=== PATIENT | female | born 1995 | race Caucasian/White ===

== ENCOUNTER 2016-11-23 22:24 | Emergency (ER) | payer BC ==
[~2016-11-23] VITALS: Ht 167.6 cm; Wt 85.5 kg
[~2016-11-23 22:24] MED LIST: ONDA-43 PO
[2016-11-23 22:42] VITALS: Ht 167.6 cm; Wt 85.5 kg
--- NOTE | 2016-11-23 23:49 | ERD ---
ER Documentation Chief Complaint Date/Time DATE: 11/23/16 TIME: 23:43 Chief Complaint RASH ON FACE AND CHEST THAT STARTED 1 WK AGO BUT SPREADING HPI This 21-year-old female presents to the emergency department for sudden onset of nonparetic rash. Patient reports rash started on her face and is moved to her chest abdomen and thighs. Patient has no history of prior dermatitis or rashes. Patient denies any food allergies, denies difficulty swallowing, lip swelling, or shortness of breath. Patient states she has tried Benadryl for symptomatic leaf with little relief of symptoms. ROS All systems reviewed and are negative except as per history of present illness. Medications Home Meds Active Scripts Ondansetron Hcl* (Zofran*) 4 Mg Tab, 4 MG PO Q4H Y for NAUSEA AND OR VOMITING for 30 Days, TAB Prov:ARMANDO BROWN PA-C 10/25/14 Reported Medications [None] No Conflict Check 10/10/09 Allergies Allergies: Coded Allergies: No Known Allergies (Verified Allergy, Mild, 05/11/10) PMhx/Soc History of Surgery: No Anesthesia Reaction: No Hx Neurological Disorder: No Hx Respiratory Disorders: No Hx Cardiac Disorders: No Hx Psychiatric Problems: No Hx Miscellaneous Medical Probl: No (NO OTHER MEDICAL PRPOBLEMS) Hx Alcohol Use: No Hx Substance Use: Yes (former marijuana user) Hx Tobacco Use: No Smoking Status: Never smoker Physical Exam Vitals Vital Signs Date Time Temp Pulse Resp B/P Pulse Ox O2 Delivery O2 Flow Rate FiO2 11/23/16 22:42 98.5 60 16 112/60 100 Vitals stable, triage notes reviewed Physical Exam Const: Well-appearing, well-nourished, well-hydrated no acute Head: Atraumatic Eyes: Normal Conjunctiva, PERRLA, EOMI ENT: Normal External Ears, Nose and Mouth mucous membranes soft, no evidence of angioedema. Neck: Full range of motion..~ No meningismus. Resp: Clear to auscultation bilaterally no rales wheezes or rhonchi or stridor Cardio: Abd: Skin: Red scaly paretic rash macules and one plaque noted on right thigh symptoms suggestive of pityriasis Back: Ext: Neur: Awake and alert Psych: Normal Mood and Affect Procedures/MDM This 21-year-old female presents to emergency department for evaluation of rash. I have little suspicion for Calvin Santiago syndrome, anaphylactic shock, chickenpox, shingles, patient has taken Benadryl at home and is not given Benadryl in the emergency department will be discharged with instructions to start eipl-lny-mnbcudi antihistamine second-generation Claritin, betamethasone will be prescribed and to follow-up with primary care physician for rash reevaluation after 7 days. Return to emergency department for shortness of breath difficulty swallowing or or breathing. I feel the patient is stable for discharge at this time. I have discussed results, examination findings, the treatment plan with the patient and family present prior to discharge. Indications for emergent reevaluation, side effects of medication were also discussed. All questions were answered. Patient verbalizes understanding and agrees with plan of care. Departure Diagnosis: Primary Impression: Pityriasis Condition: Good Patient Instructions: Pityriasis Rosea Additional Instructions: Thank you for for coming to [facility] for your care today. Please ask your nurse or provider if you have questions about your care today and do not leave until all your questions have been answered. Please use any medications given as directed and follow-up with your doctor (or the doctor you were referred to) in the next 2-3 days. If you do not have a primary care doctor you may follow up at the [facility] (listed below). You may also use motrin and tylenol as needed for fever and/or pain unless instructed otherwise by your provider or nurse. Indications for more urgent follow-up have been discussed, but you may return to the Emergency Department at ANY time for any worrisome or worsening symptoms. If you have abdominal pain, please know that no test or exam you received is perfect and you should follow up within 8 hours for continued pain. If you had any imaging studies today, such as an X-Ray or CT Scan, these studies will be reviewed later by a radiologist. You will be called if there are important findings that were not identified today, so make sure the contact information you provided at registration is correct. If you received any narcotic pain control medicine today, such as Vicodin, Morphine or Dilaudid, your coordination and judgment may be affected for a number of hours. Please do not drive or operate heavy machinery, and you may want someone to assist you at home. If you were given a prescription for narcotic medication, be aware that it is very addictive- use sparingly and only if necessary. KANA ROBINS Nov 23, 2016 23:49
[2016-11-23] MEDS ORDERED: BETA50CR5 TP (23:51)
[2016-11-23] MEDS ORDERED: LORA10CA PO (23:51)
== END 2016-11-24 00:10 | disposition home or self-care (01) ==
LOC: FTE 22:24
DX: L30.5 Pityriasis alba (principal)
CPT/HCPCS: 99283

== ENCOUNTER 2017-01-25 00:58 | Emergency (ER) | payer BC ==
[~2017-01-25] VITALS: Ht 167.6 cm; Wt 88.0 kg
[~2017-01-25 00:58] MED LIST changes: +BETA50CR5 TP; +LORA10CA PO
[2017-01-25 01:02] VITALS: Ht 167.6 cm; Wt 88.0 kg
[2017-01-25] MEDS ORDERED: FLUT9.9S NASAL (04:47)
[2017-01-25] MEDS ORDERED: CETI10CA PO (04:47)
[2017-01-25] MEDS ORDERED: IBUP-1542 PO (04:47)
[2017-01-25] MEDS ORDERED: ALBU8.5H3 INH (04:47)
[2017-01-25] MEDS ORDERED: GUAI120S26 PO (04:47)
--- NOTE | 2017-01-25 05:07 | ERD ---
ER Documentation Chief Complaint Date/Time DATE: 01/25/17 TIME: 04:58 Chief Complaint runny nose, back pain, cough HPI 21-year-old female presents here to emergency department for complaints of cough runny nose nasal congestion that started 3 days ago. Patient has been having upper back pain from coughing a lot. Patient has been having dry cough, has been having on and off wheezing at times, smokes marijuana regularly. Patient does not have any fever or chills. ROS All systems reviewed and are negative except as per history of present illness. Medications Home Meds Active Scripts Fluticasone Propionate (Flonase Allergy Relief) 9.9 Ml [place].susp, 1 SPRAY NASAL BID, #1 BOTTLE TO EACH NOSTRIL Prov:ERIC ROSE NP 01/25/17 Ibuprofen* (Motrin*) 600 Mg Tab, 600 MG PO Q6H Y for PAIN AND OR ELEVATED TEMP, #30 TAB Prov:ERIC ROSE NP 01/25/17 Cetirizine Hcl* (Zyrtec*) 10 Mg Capsule, 10 MG PO DAILY, #30 TAB.CHEW Prov:ERIC ROSE NP 01/25/17 Albuterol Sulfate* (Proair HFA*) 8.5 Gm Hfa.aer.ad, 2 PUFF INH Q4H Y for WHEEZING AND SOB, #1 INHALER Prov:ERIC ROSE NP 01/25/17 Kchhvmoqorw-S-Xifrnilowi Hb* (Guaifenesin* DM Syrup) 120 Ml Syrup, 10 ML PO Q4H Y for COUGH, #120 ML Prov:ERIC ROSE NP 01/25/17 Loratadine* (Claritin*) 10 Mg Capsule, 10 MG PO DAILY for 30 Days, #30 CAP Prov:SHIMON,KANA 11/23/16 Betamet Diprop/Prop Gly (Betamethasone Dp 0.05% Crm) 50 Gm Cream.gm., 50 GM TP BID for 14 Days Prov:SHIMON,KANA 11/23/16 Ondansetron Hcl* (Zofran*) 4 Mg Tab, 4 MG PO Q4H Y for NAUSEA AND OR VOMITING for 30 Days, TAB Prov:ARMANDO BROWN PA-C 10/25/14 Reported Medications [None] No Conflict Check 10/10/09 Allergies Allergies: Coded Allergies: No Known Allergies (Verified Allergy, Mild, 05/11/10) PMhx/Soc Medical and Surgical Hx: pt denies Medical Hx, pt denies Surgical Hx History of Surgery: No Anesthesia Reaction: No Hx Neurological Disorder: No Hx Respiratory Disorders: No Hx Cardiac Disorders: No Hx Psychiatric Problems: No Hx Miscellaneous Medical Probl: No (NO OTHER MEDICAL PROBLEMS) Hx Alcohol Use: No Hx Substance Use: Yes (former marijuana user) Hx Tobacco Use: No Smoking Status: Former smoker FmHx Family History: No coronary disease, No diabetes, No other Physical Exam Vitals Vital Signs Date Time Temp Pulse Resp B/P Pulse Ox O2 Delivery O2 Flow Rate FiO2 01/25/17 01:02 98.8 78 20 129/60 98 Physical Exam GENERAL: The patient is well developed and appropriate for usual state of health, in no apparent distress. CHEST: Clear to auscultation bilaterally. There are no rales, wheezes or rhonchi. HEART: Regular rate and rhythm. No murmurs, clicks, rubs or gallops. No S3 or S4. ABDOMEN: Soft, nontender and nondistended. Good bowel sounds. No rebound or guarding. No gross peritonitis. No gross organomegaly or masses. No Castro sign or McBurney point tenderness. BACK: No midline or flank tenderness. EXTREMITIES: Equal pulses bilaterally. There is no peripheral clubbing, cyanosis or edema. No focal swelling or erythema. Full range of motion. Grossly neurovascularly intact. NEURO: Alert and oriented. Cranial nerves 2-12 intact. Motor strength in all 4 extremities with 5/5 strength. Sensation grossly intact. Normal speech and gait. SKIN: There is no apparent rash or petechia. The skin is warm and dry. HEMATOLOGIC AND LYMPHATIC: There is no evidence of excessive bruising or lymphedema. No gross cervical, axillary, or inguinal lymphadenopathy. Procedures/MDM Medical Decision Making: Patient symptoms are most likely consistent with upper respiratory tract infection, which viral in origin. There is low suspicion for Pneumonia at this time since patients lungs sounds are clear, patient O2 saturation is normal and patient doesnt show any respiratory distress. Radiology exams not indicated at this time. There is low suspicion for other cardiopulmonary emergencies at this time such as CHF, Pulmonary Embolism, Pneumothorax,or any other cardiopulmonary emergencies at this time. There is low suspicion for sepsis. Patient appears well and is hemodynamically stable. Fever is controlled with medicines. Disposition: Home. Condition: Stable Prescriptions: Albuterol, Zyrtec, guaifenesin DM, Flonase Instructions: Patient is advised to take medications as prescribed. Patient is advised to rest. Patient advised to increase fluid intake, do humidifier at home and if possible, do salt water gargles. Patient is advised that if symptoms are worse, shortness of breath, uncontrolled fever, stridor, vomiting, worst signs and symptoms to return to emergency department immediately. Otherwise, patient is advised to follow up with primary doctor in 5-7 days. Disclaimer: Inadvertent spelling and grammatical errors are likely due to EHR/ dictation software use and do not reflect on the overall quality of patient care. Also, please note that the electronic time recorded on this note does not necessarily reflect the actual time of the patient encounter. Departure Diagnosis: Primary Impression: Upper respiratory infection URI type: unspecified viral URI Qualified Code: J06.9 - Viral upper respiratory tract infection Condition: Stable Patient Instructions: Uri, Viral, No Abx (Adult) ERIC ROSE NP Jan 25, 2017 05:07
== END 2017-01-25 05:08 | disposition home or self-care (01) ==
LOC: FTE 00:58
DX: J06.9 Acute upper respiratory infection, unspecified (principal); Z87.891 Personal history of nicotine dependence
CPT/HCPCS: 99283